=== PATIENT | male | born 1950 | race Caucasian/White ===

== ENCOUNTER 2017-07-30 07:09 | Emergency (ER) | payer MEDICARE ==
[~2017-07-30] VITALS: Ht 167.6 cm; Wt 93.7 kg
[~2017-07-30 07:09] MED LIST: CIPR500T4 PO; FLAG500T PO; GLUCTAB PO; HYDR-2768 PO; LEVI10TA PO; LISI-366 PO; LOVA40TA PO; METO100T PO; PREC25TA PO; PROM25SU8 PO; ST J81CH PO; VIAG100T PO
[2017-07-30 07:11] VITALS: BP 191/86; PULSE 72; RESP 16; TEMP 97.7; O2SAT 96
[2017-07-30] MEDS ORDERED: ACAR25TA PO (07:28)
[2017-07-30] MEDS ORDERED: METO100T PO (07:28)
[2017-07-30] MEDS ORDERED: ATOR40TA16 PO (07:28)
[2017-07-30] MEDS ORDERED: METF750T PO (07:28)
[2017-07-30] MEDS ORDERED: HYOS1TAB9 PO (07:28)
[2017-07-30] MEDS ORDERED: HYDR25TA5 PO (07:28)
[2017-07-30] MEDS ORDERED: LISI40TA PO (07:28)
--- NOTE | 2017-07-30 08:08 | PD ---
HPI Chief Complaint: Musculoskeletal Complaint Time Seen by Provider: 07:49 Travel History International Travel<30 days: No Contact w/Intl Traveler<30days: No Traveled to known affect area: No History of Present Illness HPI 66-year-old male presents with right hip pain that started yesterday after he did a twisting motion. He denies any specific trauma. He does not take any blood thinner medication. He denies other concurrent complaints including fever , abdominal pain, back pain or other acute concerns. Quality pain is pressure. Severity is severe per patient. Pain is worse with movement. He denies other modifying factors. He states he's had history of this and has bursitis. PFSH Past Medical History Cancer: Yes (melanoma) Cardiovascular Problems: Yes (PVD) High Cholesterol: Yes Diabetes: Yes Patient Takes Glucophage: Yes Diminished Hearing: No Hypertension: Yes Musculoskeletal: Yes (OA) Reproductive: Yes (ERECTILE DYSFUNCTION ) Integumentary: Yes (MALIGNANT MELANOMA) Influenza Vaccination: Yes Past Surgical History Surgical History: No Previous Surgery Social History Alcohol Use: Yes (3 BEERS DAILY ) Tobacco Use: No Substance Use: No Allergies-Medications (Allergen,Severity, Reaction): Coded Allergies: diatrizoate meglumine (Unverified Allergy, Severe, hives, 07/30/17) IV CONTRAST gadobenic acid (Unverified Allergy, Unknown, hives, 07/30/17) IV CONTRAST gadodiamide (Unverified Allergy, Unknown, hives, 07/30/17) IV CONTRAST gadoteridol (Unverified Allergy, Unknown, hives, 07/30/17) IV CONTRAST iodixanol (Unverified Allergy, Unknown, hives, 07/30/17) IV CONTRAST iohexol (Unverified Allergy, Unknown, hives, 07/30/17) IV CONTRAST Reported Meds & Prescriptions Reported Meds & Active Scripts Active Skelaxin (Metaxalone) 800 Mg Tablet 800 Mg PO HS PRN Reported Hyoscyamine (Hyoscyamine Sulfate) 0.125 Mg Tab 0.125 Mg PO Q4H Acarbose 25 Mg Tab 25 Mg PO TID Take with first bite of meal. Metformin ER (Metformin HCl) 750 Mg Sp 750 Mg PO DAILY@1600 With evening meal Metoprolol Tartrate 100 Mg Tab 100 Mg PO DAILY Atorvastatin (Atorvastatin Calcium) 40 Mg Tab 40 Mg PO DAILY Hydrochlorothiazide 25 Mg Tab 25 Mg PO DAILY Lisinopril 40 Mg Tab 40 Mg PO DAILY Review of Systems Except as stated in HPI: all other systems reviewed are Neg Physical Exam Narrative GENERAL: Well-nourished, well-developed patient. Well-appearing SKIN: Warm and dry. HEAD: Normocephalic and atraumatic. EYES: No injection or drainage. ENT: No nasal drainage noted. NECK: Supple, trachea midline. CARDIOVASCULAR: Regular rate and rhythm RESPIRATORY: Breath sounds equal bilaterally. No accessory muscle use. GASTROINTESTINAL: Abdomen soft, non-tender, nondistended. EXTREMITIES: No edema.Pain with palpation of right lateral hip, no pain with other joints , neurovascularly intact, no lacerations over, compartments soft. BACK: Nontender without obvious deformity to entire spine. NEUROLOGICAL: Awake and alert. Motor and sensory grossly within normal limits. Normal speech. Data Data Last Documented VS Vital Signs Date Time Temp Pulse Resp B/P (MAP) Pulse Ox O2 Delivery O2 Flow Rate FiO2 07/30/17 07:11 97.7 72 16 191/86 (121) 96 Orders Orders Ketorolac Inj (Toradol Inj) (07/30/17 08:15) Hip, Uni(Ap&Lat) W Ap Pelvis (07/30/17 ) Ed Discharge Order (07/30/17 08:38) [facility] Medical Decision Making Medical Screen Exam Complete: Yes Emergency Medical Condition: Yes Medical Record Reviewed: Yes (past history confirmed) Interpretation(s) Last 24 hours Impressions Hip and Pelvis X-Ray 07/30/17 0000 Signed Impressions: Service Date/Time: Sunday, July 30, 2017 08:04 - CONCLUSION: 1. Mild right hip joint osteoarthritis. No acute abnormality is identified. 2. Severe atherosclerotic disease. Donald Zhang MD Differential Diagnosis Bursitis, lateral femoral cutaneous compression, arthritis, fracture.... Narrative Course will check xray and dose with toradol and reevaluate xray without fracture, Patient denies any new complaints, all questions answered. Patient knows that follow up is incumbent on them and to return to the emergency room immediately if new or worsening symptoms develop. Patient given strict return precautions, vitals reviewed and are normal, agrees to further workup as an outpatient. Diagnosis Primary Impression: Hip pain, right Patient Instructions: General Instructions Additional Instructions: return as needed, follow with primary this week, alternate tylenol and motrin, keep blood pressure log Med/Other Pt SpecificInfo: Prescription(s) given Scripts Metaxalone (Skelaxin) 800 Mg Tablet 800 MG PO HS Y for PAIN SCALE 1 TO 10, #15 Prov: Sudha Hampton MD 07/30/17 Disposition: 01 DISCHARGE HOME Condition: Stable Sudha Hampton MD Jul 30, 2017 08:08
[2017-07-30] MEDS ORDERED: KETOROLAC TROMETHAMINE 60 MG/2 ML (IM) VIAL IM ONE (08:15)
--- NOTE | 2017-07-30 08:29 | RADRPT ---
EXAM DATE/TIME: 07/30/2017 08:04 [place] COMPARISON: No previous studies available for comparison. INDICATIONS : Right hip pain with no known injury. MEDICAL HISTORY : None. SURGICAL HISTORY : None. ENCOUNTER: Initial ACUITY: 2 days PAIN SCORE: 6/10 LOCATION: Right anterior hip FINDINGS: AP view of the pelvis with 2 views of the right hip demonstrate no fracture or dislocation. Mineraliz ation is normal. There is mild joint space narrowing with minimal acetabular osteophytes. Pelvic bone s demonstrate no acute finding. There is severe arterial vascular calcification. No soft tissue abnor mality or radiopaque foreign body is identified. CONCLUSION: 1. Mild right hip joint osteoarthritis. No acute abnormality is identified. 2. Severe atherosclerotic disease. Donald Zhang MD on July 30, 2017 at 8:24 Board Certified Radiologist. This report was verified electronically.
[2017-07-30] MEDS ORDERED: META800 PO (08:38)
== END 2017-07-30 09:08 | disposition home or self-care (01) ==
LOC: PHEFT 07:09
DX: M25.551 Pain in right hip (principal); I10 Essential (primary) hypertension; E11.9 Type 2 diabetes mellitus without complications; E78.00 Pure hypercholesterolemia, unspecified; Z79.84 Long term (current) use of oral hypoglycemic drugs; Z85.828 Personal history of other malignant neoplasm of skin; X50.1XXA Overexertion from prolonged static or awkward postures, initial encounter
CPT/HCPCS: 73502; 96372; 99284; J1885